=== PATIENT | female | born 2000 | race Asian ===

== ENCOUNTER 2025-05-14 02:52 | Emergency (ER) | payer OTHER ==
[~2025-05-14] VITALS: Ht 154.9 cm; Wt 53.1 kg
[2025-05-14] MEDS ORDERED: RX Prepack 6 Tabs Oxycodone 5mg UD ONE (03:50)
== END 2025-05-14 03:56 | disposition home or self-care (01) ==
LOC: ER 02:52
DX: S52.502A Unspecified fracture of the lower end of left radius, initial encounter for closed fracture (principal); F10.129 Alcohol abuse with intoxication, unspecified; W01.0XXA Fall on same level from slipping, tripping and stumbling without subsequent striking against object, initial encounter
CPT/HCPCS: 29125; 73110; 99283-25; A9270